=== PATIENT | female | born 1980 | race Caucasian/White ===

== ENCOUNTER 2019-11-23 11:45 | Emergency (ER) | payer BC, OTHER ==
--- OUTSIDE RECORDS SUMMARY | 2019-11-23 12:56 | XMS REPORT | Continuity of Care Document ---
:1980 External Reference #:[id number] Author Name Bryce Telles M.D. 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 40mg Tablets Dulera 1-2 puffs every 13gm J45.909 Bryce Telles, 11/10/2018 100-5mcg/Act day M.D. Aerosol Ambien 1 tab by mouth 30tabs G47.00 Bryce Telles, 08/06/2018 10mg Tablets every night as M.D. needed F41.9 Claritin 1 by mouth every 30caps J30.9 Bryce Telles, 07/03/2018 10mg Capsules day as needed M.D. Topiramate take 1 tablet 180tabs G43.119 Bryce Telles, 03/15/2017 100mg Tablets twice a day M.D. Ibuprofen 1 tab by mouth 90tabs M54.5 Bryce Telles, 07/30/2016 800mg Tablets every 8 hours with M.D. food as needed for pain R10.30 Omeprazole take 1 capsule daily 90caps K21.0 Bryce Telles, 06/26/[address] Juarez History Medications Tamiflu 1 cap by mouth 10caps J09.x9 Bryce Telles, 08/21/2019 - 75mg Capsules twice a day M.D. 08/25/2019 Cipro 1 tab by mouth 10tabs J09.x9 Bryce Telles, 08/21/2019 - 500mg Tablets twice a day M.D. 08/25/2019 Prednisone 3 tab by mouth 18tabs Bryce Telles, 07/08/2019 - 20mg daily 3 days, M.D. 07/17/2019 Tablets then 2 tab daily x 3 d , then 1 tab daily 3d Zantac 150 Maximum 2 tabs by mouth 60tabs K21.0 Bryce Telles, 2018 - Strength at as needed M.D. 05/15/2019 150mg reflux Tablets Medications Administered in Office Medication SIG Qnty Indications Ordering Provider Date Intradermal Mantoux Bryce Telles M.D. 04/28/2018 Injection Intradermal Mantoux Juan Miguel Montaño [facility] 01/31/2015 Injection Immunizations CPT Code Status Date Vaccine Reaction Lot # 13811 Given 08/12/2019 Flu Virus Vaccine, [id number] Quadrivalent, Slit Virus, Im Use 61640 Given 09/15/2018 Flu Vaccine [id number] 98317 Given 09/04/2017 MMR [id number] 00037 Given 08/30/2017 Flu Vaccine GIVEN AT [facility] 08/30/17--SEE NOTIFICATION IN CHART 71254 Given 07/30/2016 Flu Vaccine [id number] 55802 Given 08/11/2014 Flu Vaccine 79218 Given 10/08/2012 Flu Vaccine [id number] 65193 Given 07/13/1995 DTaP ND [id number] ML 0.50 99397 Given 06/05/1991 MMR 18519 Given 11/18/1981 DTaP ND [id number] ML 0.50 98019 Given 11/18/1981 MMR 36005 Given 11/18/1981 IPV 71698 Given 1980 IPV 77696 Given 1980 DTaP NDC [id number] ML 0.50 26405 Given 1980 IPV 82682 Given 1980 DTaP NDC [id number] ML 0.50 98266 Given 1980 IPV 51529 Given 1980 DTaP NDC [id number] ML 0.50 Vital Signs Date Vital Result Comment 09/25/2019 9:03am BP Systolic 118 mmHg BP Diastolic 66 mmHg Height 65 inches 5'5" Weight 205.00 lb BMI (Body Mass Index) 34.1 kg/m2 Heart Rate 74 /min Respiratory Rate 16 /min 08/21/2019 8:28am BP Systolic 118 mmHg BP Diastolic 66 mmHg Height 65 inches 5'5" Weight 199.00 lb BMI (Body Mass Index) 33.1 kg/m2 Heart Rate 99 /min Body Temperature 97.6 F Respiratory Rate 16 /min Results Test Acquired Date Facility Test Result H/L Range Note CBC With Diff 08/12/2019 [facility] WBC 5.9 10*3/uL (4.1-11.0) [address] [facility] (607)- - RBC 4.50 10*6/uL (4.00-5.40) HGB 13.9 g/dL (12.0-16.0) HCT 41.3 % (36.0-47.0) MCV 91.8 fL (80.0-95.0) MCH 31.0 pg (27.0-32.0) MCHC 33.8 g/dL (32.0-36.0) RDW 13.3 % (10.5-14.5) PLT 257 10*3/uL (150-450) MPV 8.3 fL (7.1-10.7) Neut % 61.0 % (35.0-75.0) Lymph % 33.1 % (16.0-52.0) Patrick % 4.8 % (0.0-8.0) Eos % 0.7 % (0.0-5.0) Baso % 0.4 % (0.0-4.0) Neut # 3.6 10*3/uL (1.8-7.7) Lymph # 2.0 10*3/uL (1.2-4.8) Patrick # 0.3 10*3/uL (0.0-0.8) Eos # 0.0 10*3/uL (0.0-0.5) Baso # 0.0 10*3/uL (0.0-0.2) CMP 08/12/2019 [facility] Sodium 142 mmol/L (136-145) [address] [facility] (607)- - Potassium 4.4 mmol/L (3.6-5.2) Chloride 113 mmol/L High (100-108) Co2 22 mmol/L (22-31) Anion Gap 7 mmol/L (7-16) Urea Nitrogen 18 mg/dL (7-24) Creatinine 0.95 mg/dL (0.60-1.00) BUN/Creat Ratio 18.9 RATIO (10.0-20.0) Glucose 95 mg/dL (70-99) Calcium 9.2 mg/dL (8.4-10.2) Total Protein 7.4 g/dL (6.4-8.2) Albumin 3.9 g/dL (3.5-4.6) Globulin 3.5 g/dL (2.7-4.3) Alb/Glob Ratio 1.1 RATIO Alkaline Phosphatase 45 U/L (45-117) Bilirubin,Total 0.2 mg/dL (0.0-1.0) Ast (Sgot) 8 U/L Low (11-39) Alt (SGPT) 17 U/L (12-78) GFR >60 ml/min/1.73m2 (>59) GFR ( Amer) >60 ml/min/1.73m2 (>59) GFR Interpretation <SEE NOTE> 1 Hemoglobin A1c 08/12/2019 [facility] Hemoglobin A1c @ 5.8 % (4.0-6.0) 2 [address] [facility] (607)- - Est Average Glucose 120 mg/dL Lipid 08/12/2019 [facility] Cholesterol @ 164 mg/dL (0-200) [address] [facility] (607)- - Triglyceride @ 115 mg/dL (30-200) HDL Cholesterol @ 39 mg/dL Low (>40) 3 Chol/HDL Ratio 4.2 RATIO 4 LDL Chol (Calc) 102 mg/dL (<130) 5 Laboratory 08/12/2019 [facility] TSH,Ultrasensitive @ 1.200 (0.360- 4.170) test finding [address] [facility] mIU/L (607)- - 25 Hydroxy Vit D @ 19 ng/mL Low (31-100) 6 1 NORMAL KIDNEY FUNCTION OR MILD DISEASE - GFR >OR= 60 CHRONIC KIDNEY DISEASE - GFR 15 - 59 RENAL FAILURE - GFR <15 Est. GFR calculation based on the MDRD study equation, which assumes a steady state for creatinine. Est. GFR should not be used for medication dosing. 2 Performed using [employer] immunoassay. Care must be taken when interpreting HbA1c results in patients with a hemoglobin variant or decreased erythrocyte lifespan. Values 5.7 - 6.4% suggest prediabetes. Values >=6.5% are diagnostic for diabetes. REFERENCE: DIABETES CARE 2018: 41(S13-S27). 3 PER NCEP ATP III GUIDELINES: RESULTS LOWER THAN 40 MG/DL ARE SUGGESTIVE OF INCREASED RISK FOR CORONARY ARTERY DISEASE. RESULTS > OR = TO 60 MG/DL ARE CONSIDERED A NEGATIVE RISK FACTOR. 4 INTERPRETATION OF CHOL-HDL RATIO CHD RISK FEMALE MALE VERY HIGH >8.3 >14.3 HIGH 5.6- 8.3 6.7- 14.3 AVERAGE 3.7- 5.6 4.0- 6.7 BELOW AVERAGE 2.5- 3.7 2.7- 4.0 PROTECTED <2.5 <2.7 5 PER NCEP ATP III GUIDELINES: OPTIMAL < 100 NEAR OPTIMAL 100 - 129 BORDERLINE HIGH 130 - 159 HIGH 160 - 189 VERY HIGH > 189 6 A REVIEW OF THE LITERATURE SUGGESTS THE FOLLOWING RANGES FOR THE CLASSIFICATION OF 25-OH VITAMIN D STATUS: VITAMIN D STATUS 25-OH VITAMIN D DEFICIENCY <20 NG/ML INSUFFICIENCY 20-30 NG/ML SUFFICIENCY 31 - 100 NG/ML TOXICITY > 100 NG/ML A PEDIATRIC REFERENCE RANGE HAS NOT BEEN ESTABLISHED USING THIS METHOD. Procedures Description No Information Available Medical Devices Description No Information Available Encounters Type Date Location Provider Dx Diagnosis Office Visit 09/25/2019 Bryce Pate, J45.909 Unspecified asthma, 9:00a M.D. 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 uncomplicated R73.01 Impaired fasting glucose K21.0 Gastro-esophageal reflux disease with esophagitis L20.9 Atopic dermatitis, unspecified J30.9 Allergic rhinitis, unspecified G47.00 Insomnia, unspecified F41.9 Anxiety disorder, unspecified G43.119 Migraine with aura, intractable, without status migrainosus R10.30 Lower abdominal pain, unspecified Z23 Encounter for immunization K30 Functional dyspepsia M54.5 Low back pain H52.13 Myopia, bilateral E66.3 Overweight Z83.3 Family history of diabetes mellitus R42 Dizziness and giddiness R53.83 Other fatigue M79.672 Pain in left foot Z79.899 Other group home (current) drug therapy K58.1 Irritable bowel syndrome with constipation G47.33 Obstructive sleep apnea (adult) (pediatric) R35.0 Frequency of micturition E55.9 Vitamin D deficiency, unspecified J09.x9 Flu due to ident novel influenza A virus w oth manifest R06.02 Shortness of breath R05 Cough R09.81 Nasal congestion R50.9 Fever, unspecified Office Visit 08/12/2019 8:30a Bryec Pate, J45.909 Unspecified asthma, M.D. uncomplicated R73.01 Impaired fasting glucose K21.0 Gastro-esophageal reflux disease with esophagitis L20.9 Atopic dermatitis, unspecified J30.9 Allergic rhinitis, unspecified E16.2 Hypoglycemia, unspecified G47.00 Insomnia, unspecified F41.9 Anxiety disorder, unspecified G43.119 Migraine with aura, intractable, without status migrainosus R10.30 Lower abdominal pain, unspecified Z23 Encounter for immunization K30 Functional dyspepsia M54.5 Low back pain H52.13 Myopia, bilateral E66.3 Overweight Z83.3 Family history of diabetes mellitus R42 Dizziness and giddiness R53.83 Other fatigue M79.672 Pain in left foot Z79.899 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 uncomplicated R73.01 Impaired fasting glucose K21.0 Gastro-esophageal reflux disease with esophagitis L20.9 Atopic dermatitis, unspecified J30.9 Allergic rhinitis, unspecified E16.2 Hypoglycemia, unspecified G47.00 Insomnia, unspecified F41.9 Anxiety disorder, unspecified G43.119 Migraine with aura, intractable, without status migrainosus R10.30 Lower abdominal pain, unspecified K30 Functional dyspepsia M54.5 Low back pain H52.13 Myopia, bilateral E66.3 Overweight Z83.3 Family history of diabetes mellitus R42 Dizziness and giddiness R53.83 Other fatigue M79.672 Pain in left foot Z79.899 Other group home (current) drug therapy K58.1 Irritable bowel syndrome with constipation G47.33 Obstructive sleep apnea (adult) (pediatric) R35.0 Frequency of micturition S33.5xxA Sprain of ligaments of lumbar spine, initial encounter Office Visit 05/15/2019 8:45a Bryce Pate, J45.909 Unspecified kwesi, MJuvencio uncomplicated R73.01 Impaired fasting glucose K21.0 Gastro-esophageal reflux disease with esophagitis L20.9 Atopic dermatitis, unspecified J30.9 Allergic rhinitis, unspecified E16.2 Hypoglycemia, unspecified G47.00 Insomnia, unspecified F41.9 Anxiety disorder, unspecified G43.119 Migraine with aura, intractable, without status migrainosus R10.30 Lower abdominal pain, unspecified K30 Functional dyspepsia M54.5 Low back pain H52.13 Myopia, bilateral E66.3 Overweight Z83.3 Family history of diabetes mellitus R42 Dizziness and giddiness R53.83 Other fatigue M79.672 Pain in left foot Z79.899 Other group home (current) drug therapy K58.1 Irritable bowel syndrome with constipation G47.33 Obstructive sleep apnea (adult) (pediatric) Office Visit 04/07/2019 11:15a Ophelia Jose J45.909 Unspecified asthma, N.P. 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 09/25/2019 R73.01 Impaired fasting glucose Bryce Telles M.D. 09/25/2019 K21.0 Gastro-esophageal reflux disease with Bryce Telles M.D. esophagitis 09/25/2019 L20.9 Atopic dermatitis, unspecified Bryce Telles M.D. 09/25/2019 J30.9 Allergic rhinitis, unspecified Bryce Telles M.D. 09/25/2019 G47.00 Insomnia, unspecified Bryce Telles M.D. 09/25/2019 F41.9 Anxiety disorder, unspecified Bryce Telles M.D. 09/25/2019 G43.119 Migraine with aura, intractable, without Bryce Telles M.D. status migrainosus 09/25/2019 R10.30 Lower abdominal pain, unspecified Bryce Telles M.D. 09/25/2019 K30 Functional dyspepsia Bryce Telles M.D. 09/25/2019 M54.5 Low back pain Bryce Telles M.D. 09/25/2019 H52.13 Myopia, bilateral Bryce Telles M.D. 09/25/2019 E66.3 Overweight Bryce Telles M.D. 09/25/2019 Z83.3 Family history of diabetes mellitus Bryce Telles M.D. 09/25/2019 R42 Dizziness and giddiness Bryce Telles M.D. 09/25/2019 R53.83 Other fatigue Bryce Telles M.D. 09/25/2019 M79.672 Pain in left foot Bryce Telles M.D. 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 09/25/2019 K58.1 Irritable bowel syndrome with constipation Bryce Telles M.D. 09/25/2019 G47.33 Obstructive sleep apnea (adult) (pediatric) Bryce Telles M.D. 09/25/2019 R35.0 Frequency of micturition Bryce Telles M.D. 09/25/2019 E55.9 Vitamin D deficiency, unspecified Bryce Telles M.D. 09/25/2019 J09.x9 Influenza due to identified novel influenza Bryce Telles M.D. A virus with other manifestations 09/25/2019 R06.02 Shortness of breath Bryce Telles M.D. 09/25/2019 R05 Cough Bryce Telles M.D. 09/25/2019 R09.81 Nasal congestion Bryce Telles M.D. 09/25/2019 R50.9 Fever, unspecified Bryce Telles M.D. 08/21/2019 J45.909 Unspecified asthma, uncomplicated Bryce Telles M.D. 08/21/2019 R73.01 Impaired fasting glucose Bryce Telles M.D. 08/21/2019 K21.0 Gastro-esophageal reflux disease with Bryce Telles M.D. esophagitis 08/21/2019 L20.9 Atopic dermatitis, unspecified Bryce Telles M.D. 08/21/2019 J30.9 Allergic rhinitis, unspecified Bryce Telles M.D. 08/21/2019 G47.00 Insomnia, unspecified Bryce Telles M.D. 08/21/2019 F41.9 Anxiety disorder, unspecified Bryce Telles M.D. 08/21/2019 G43.119 Migraine with aura, intractable, without Bryce Telles M.D. status migrainosus 08/21/2019 R10.30 Lower abdominal pain, unspecified Bryce Telles M.D. 08/21/2019 Z23 Encounter for immunization Bryce Telles M.D. 08/21/2019 K30 Functional dyspepsia Bryce Telles M.D. 08/21/2019 M54.5 Low back pain Bryce Telles M.D. 08/21/2019 H52.13 Myopia, bilateral Bryce Telles M.D. 08/21/2019 E66.3 Overweight Bryce Telles M.D. 08/21/2019 Z83.3 Family history of diabetes mellitus Bryce Telles M.D. 08/21/2019 R42 Dizziness and giddiness Bryce Telles M.D. 08/21/2019 R53.83 Other fatigue Bryce Telles M.D. 08/21/2019 M79.672 Pain in left foot Bryce Telles M.D. 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 08/21/2019 K58.1 Irritable bowel syndrome with constipation Bryce Telles M.D. 08/21/2019 G47.33 Obstructive sleep apnea (adult) (pediatric) Bryce Telles M.D. 08/21/2019 R35.0 Frequency of micturition Bryce Telles M.D. 08/21/2019 E55.9 Vitamin D deficiency, unspecified Bryce Telles M.D. 08/21/2019 J09.x9 Influenza due to identified novel influenza Bryce Telles M.D. A virus with other manifestations 08/21/2019 R06.02 Shortness of breath Bryce Telles M.D. 08/21/2019 R05 Cough Bryce Telles M.D. 08/21/2019 R09.81 Nasal congestion Bryce Telles M.D. 08/21/2019 R50.9 Fever, unspecified Bryce Telles M.D. 08/12/2019 J45.909 Unspecified asthma, uncomplicated Bryce Telles M.D. 08/12/2019 R73.01 Impaired fasting glucose Bryce Telles M.D. 08/12/2019 K21.0 Gastro-esophageal reflux disease with Bryce Telles M.D. esophagitis 08/12/2019 L20.9 Atopic dermatitis, unspecified Bryce Telles M.D. 08/12/2019 J30.9 Allergic rhinitis, unspecified Bryce Telles M.D. 08/12/2019 E16.2 Hypoglycemia, unspecified Bryce Telles M.D. 08/12/2019 G47.00 Insomnia, unspecified Bryce Telles M.D. 08/12/2019 F41.9 Anxiety disorder, unspecified Bryce Telles M.D. 08/12/2019 G43.119 Migraine with aura, intractable, without ElfegoBryce alan M.D. status migrainosus 08/12/2019 R10.30 Lower abdominal pain, unspecified Bryce Telles M.D. 08/12/2019 Z23 Encounter for immunization Bryce Telles M.D. 08/12/2019 K30 Functional dyspepsia Bryce Telles M.D. 08/12/2019 M54.5 Low back pain Bryce Telles M.D. 08/12/2019 H52.13 Myopia, bilateral Bryce Telles M.D. 08/12/2019 E66.3 Overweight Bryce Telles M.D. 08/12/2019 Z83.3 Family history of diabetes mellitus Bryce Telles M.D. 08/12/2019 R42 Dizziness and giddiness Bryce Telles M.D. 08/12/2019 R53.83 Other fatigue Bryce Telles M.D. 08/12/2019 M79.672 Pain in left foot Bryce Telles M.D. 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 08/12/2019 K58.1 Irritable bowel syndrome with constipation Bryce Telles M.D. 08/12/2019 G47.33 Obstructive sleep apnea (adult) (pediatric) Bryce Telles M.D. 08/12/2019 R35.0 Frequency of micturition Bryce Telles M.D. 08/12/2019 Z00.01 Encounter for general adult medical Bryce Telles M.D. examination with abnormal findings 08/12/2019 E55.9 Vitamin D deficiency, unspecified Bryce Telles M.D. 07/08/2019 J45.909 Unspecified asthma, uncomplicated Bryce Telles M.D. 07/08/2019 R73.01 Impaired fasting glucose Bryce Telles M.D. 07/08/2019 K21.0 Gastro-esophageal reflux disease with Bryce Telles M.D. esophagitis 07/08/2019 L20.9 Atopic dermatitis, unspecified Bryce Telles M.D. 07/08/2019 J30.9 Allergic rhinitis, unspecified Bryce Telles M.D. 07/08/2019 E16.2 Hypoglycemia, unspecified Bryce Telles M.D. 07/08/2019 G47.00 Insomnia, unspecified Bryce Telles M.D. 07/08/2019 F41.9 Anxiety disorder, unspecified Bryce Telles M.D. 07/08/2019 G43.119 Migraine with aura, intractable, without Bryce Telles M.D. status migrainosus 07/08/2019 R10.30 Lower abdominal pain, unspecified Bryce Telles M.D. 07/08/2019 K30 Functional dyspepsia Bryce Telles M.D. 07/08/2019 M54.5 Low back pain Bryce Telles M.D. 07/08/2019 H52.13 Myopia, bilateral Bryce Telles M.D. 07/08/2019 E66.3 Overweight Bryce Telles M.D. 07/08/2019 Z83.3 Family history of diabetes mellitus Bryce Telles M.D. 07/08/2019 R42 Dizziness and giddiness Bryce Telles M.D. 07/08/2019 R53.83 Other fatigue Bryce Telles M.D. 07/08/2019 M79.672 Pain in left foot Bryce Telles M.D. 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 07/08/2019 K58.1 Irritable bowel syndrome with constipation Bryce Telles M.D. 07/08/2019 G47.33 Obstructive sleep apnea (adult) (pediatric) Bryce Telles M.D. 07/08/2019 R35.0 Frequency of micturition Bryce Telles M.D. 07/08/2019 S33.5xxA Sprain of ligaments of lumbar spine, Bryce Telles M.D. initial encounter 05/15/2019 J45.909 Unspecified asthma, uncomplicated Bryce Telles M.D. 05/15/2019 R73.01 Impaired fasting glucose Bryce Telles M.D. 05/15/2019 K21.0 Gastro-esophageal reflux disease with Bryce Telles M.D. esophagitis 05/15/2019 L20.9 Atopic dermatitis, unspecified Bryce Telles M.D. 05/15/2019 J30.9 Allergic rhinitis, unspecified Bryce Telles M.D. 05/15/2019 E16.2 Hypoglycemia, unspecified Bryce Telles M.D. 05/15/2019 G47.00 Insomnia, unspecified Bryce Telles M.D. 05/15/2019 F41.9 Anxiety disorder, unspecified Bryce Telles M.D. 05/15/2019 G43.119 Migraine with aura, intractable, without Bryce Telles M.D. status migrainosus 05/15/2019 R10.30 Lower abdominal pain, unspecified Bryce Telles M.D. 05/15/2019 K30 Functional dyspepsia Bryce Telles M.D. 05/15/2019 M54.5 Low back pain Bryce Telles M.D. 05/15/2019 H52.13 Myopia, bilateral Bryce Telles M.D. 05/15/2019 E66.3 Overweight Bryce Telles M.D. 05/15/2019 Z83.3 Family history of diabetes mellitus Bryce Telles M.D. 05/15/2019 R42 Dizziness and giddiness Bryce Telles M.D. 05/15/2019 R53.83 Other fatigue Bryce Telles M.D. 05/15/2019 M79.672 Pain in left foot Bryce Telles M.D. 05/15/2019 Z79.899 Other group home (current) drug therapy Bryce Telles M.D. 05/15/2019 K58.1 Irritable bowel syndrome with constipation Bryce Telles M.D. 05/15/2019 G47.33 Obstructive sleep apnea (adult) (pediatric) Bryce Telles M.D. 04/07/2019 J45.909 Unspecified asthma, uncomplicated Estuardo Jose, N.P. 04/07/2019 R73.01 Impaired fasting glucose Estuardo Jose N.P. 04/07/2019 K21.0 Gastro-esophageal reflux disease with Estuardo Jose N.PPortillo esophagitis 04/07/2019 L20.9 Atopic dermatitis, unspecified Estuardo Jose N.PPortillo 04/07/2019 J30.9 Allergic rhinitis, unspecified Estuardo Jose N.PPortlilo 04/07/2019 E16.2 Hypoglycemia, unspecified Estuardo Jose N.PPortillo 04/07/2019 G47.00 Insomnia, unspecified Estuardo Jose N.PPortillo 04/07/2019 F41.9 Anxiety disorder, unspecified Estuardo Jose N.PPortillo 04/07/2019 G43.119 Migraine with aura, intractable, without Estuardo Jose, N.PPortillo status migrainosus 04/07/2019 R10.30 Lower abdominal pain, unspecified Estuardo Jose N.PPortillo 04/07/2019 K30 Functional dyspepsia Estuardo Jose N.PPortillo 04/07/2019 M54.5 Low back pain Estuardo Jose N.PPortillo 04/07/2019 H52.13 Myopia, bilateral Estuardo Jose N.PPortillo 04/07/2019 E66.3 Overweight Estuardo Jose N.PPortillo 04/07/2019 Z83.3 Family history of diabetes mellitus Estuardo Jose N.PPortillo 04/07/2019 R42 Dizziness and giddiness Estuardo Jose N.PPortillo 04/07/2019 R53.83 Other fatigue Estuardo Jose N.PPortillo 04/07/2019 M79.672 Pain in left foot Estuardo Jose N.PPortillo 04/07/2019 Z79.899 Other ad terminal 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 operator (current) 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 therapy Estuardo Jose N.PPortillo 04/07/2019 K58.1 Irritable bowel syndrome with constipation Estuardo Jose NPatience Plan of Treatment 09/25/2019 - Bryce Telles M.D.J45.909 Unspecified asthma, uncomplicatedComments:MDI / NEBULIZER [place] PRN AVOID EXPOSURE TO SMOKING OR MBZGUT41.01 Impaired fasting glucoseComments:F/U [facility] AN HS PRNLOW GLUCOSE DIETK21.0 Gastro-esophageal reflux disease with esophagitisComments: AVOID CAFFEINE, ETOH AND SPICY FOODSTUMS OR MYLANTA PRN CALL WITH PROBLEMS OR RKBIWDQIP81.9 Atopic dermatitis, unspecifiedComments:SKIN CARE INSTRUCTIONS LOTION OR BABY OIL 2-3 APPLICATION PER DAYUSE MOISTURIZING SOAPAVOID PROLONGED WATER EXPOSUREAVOID USING HOT WATER IN PVJRWWX09.9 Allergic rhinitis, unspecifiedComments:INCREASE PO FLUID USE ANTIHISTAMINE PRN SECOND HAND SMOKING [id number] Insomnia, unspecifiedComments:COUNCELLING AND REASSURANCE RELAXATION TECHNIQUES DISCUSSED COUNSELED RE: STRESSORS IN LIFE TYLENOLPM OR MOTRIN PM PRN DUR [id number] Anxiety disorder, unspecifiedComments: COUNCELLING AND REASSURANCE RELAXATION TECHNIQUES DISCUSSEDCOUNSELED RE: STRESSORS IN LIFE AVOID ALLENERGY/HIGH CAFFEINE DRINKS DUR DRUYNNYN44.119 Migraine with aura, intractable, without status migrainosusComments:COUNCELLING AND REASSURANCE F/U WITH NEUROLOGY PRNR10.30 Lower abdominal pain, unspecifiedComments:TYLENOL OR MOTRIN PRNINCREASE PO FLUIDLAXATIVE PRN F/U DIRECTEDF/U [id number] Functional dyspepsiaComments:AVOID CAFFEINE, ETOH AND SPICY FOODSTUMS OR MYLANTA PRN CALL WITH PROBLEMS OR JDBIPYHMK93.5 Low back painComments:EXERCISE/HEAT /MESSAGEAVOID HEAVY LIFTING WT LOSSTYLENOL OR MOTRIN PRNH52.13 Myopia, bilateralComments:USE GLASSES/ CONTACTSF/U WITH [id number] OverweightComments:EXERCISE REGURALYDIET RICPENTNWYHT66.3 Family history of diabetes mellitusComments:OBSERVEF/U LAB [id number] Dizziness and giddinessComments:NCTKOCW83.83 Other fatigueComments:INCRFEASE PO FLUIDCOUNCELLING AND REASSURANCE RESTM79.672 Pain in left footComments:TYLENOL OR MOTRIN PRN EXERCISE/HEAT/MESSAGE F/U WITH TQRFIZGGP34.899 Other group home ( current) drug therapyComments:REVIEWED MEDICATIONS AND DIRECTIONS WITH PATIENT DUR FAEBUGJN71.1 Irritable bowel syndrome with constipationComments:TYLENOL OR MOTRIN PRNINCREASE PO FLUIDLAXATIVE PRN F/U DIRECTEDF/U PWEAEOJUK05.33 Obstructive sleep apnea (adult) (pediatric)Comments:PENDING SLEEP APNEA TESTR35.0 Frequency of micturitionComments:OBSERVE AND LEBOJFFOI73.9 Vitamin D deficiency, unspecifiedComments:INCREASE EXPOSURE TO SUNREVIEW OF DIETJ09.x9 Influenza due to identified novel influenza A virus with other manifestationsComments:VNCYKTDPG74.02 Shortness of breathComments:[id number] CoughComments:DHAHXHYOE41.81 Nasal congestionComments:SACVIGSHF35.9 Fever, unspecifiedComments:RESOLVED Functional Status Description No Information Available Mental Status Description No Information Available Referrals Refer to Reason for Referral Status Appt Date Logan Sandoval MD Closed 05/05/[address] [place] [id number] ENT [phone]
[2019-11-23 13:22] VITALS: BP 107/63
--- NOTE | 2019-11-23 13:23 | UC ---
Respiratory Complaint HPI - HPI Summary HPI Summary: Patient is a 39yo female presenting with for complaint of cough, sob, myalgias, and chills x3-4 days. Patient states she has been sick on and off multiple times since sep 2019 and seen by her pcp for treatment. States she was treated with two different antibiotics for both sinusitis and "to prevent pneumonia." States she was also given prednisone at one point. Patient states that the past few days she has been using both her dulera inhaler and rescue albuterol inhaler only with temporary relief. Denies current URI symptoms. Denies rash. Notes chills and subjective fever this morning. Notes back pain that is worsened by coughing. Cough nonproductive. Denies taking anything for cough relief. States she has concern for pneumonia. Patient notes she works at [email or web address] in [place]. - History of Current Complaint Stated Complaint: COUGH/CHEST CONGESTION Hx Obtained From: Patient Pain Intensity: 5 Pain Scale Used: 0-10 Numeric - Allergies/Home Medications Allergies/Adverse Reactions: Allergies Allergy/AdvReac Type Severity Reaction Status Date / Time No Known Allergies Allergy Verified 11/23/19 13:03 Home Medications: Home Medications Albuterol HFA INHALER* [Ventolin HFA Inhaler*] 2 puff INH BID PRN 11/23/19 [ History Confirmed 11/23/19] Citalopram TAB* [CeleXA TAB*] 40 mg PO BEDTIME 11/23/19 [History Confirmed 11/23] Expectorant 12hr Liquid 10 mg PO DAILY PRN 11/23/19 [History] Mometasone/Formoter 100/5 MDI* [Dulera 100/5 MDI*] 2 puff INH BID 11/23/19 [ History Confirmed 11/23/19] Omeprazole 40 mg PO QAM 11/23/19 [History Confirmed 11/23/19] Topiramate TAB(*) [Topamax 100 mg tab] 100 mg PO BID 11/23/19 [History Confirmed 11/23/19] Zolpidem TAB* [Ambien TAB*] 10 mg PO BEDTIME PRN 11/23/19 [History Confirmed ] PMH/Surg Hx/FS Hx/Imm Hx - Surgical History Surgical History: Yes Surgery Procedure, Year, and Place: lap cholecystectomy, hysterectomy - Social History Alcohol Use: None Substance Use Type: None Smoking Status (MU): Former Smoker Review of Systems All Other Systems Reviewed And Are Negative: Yes Constitutional: Positive: Fever - subjective. Negative: Chills Skin: Positive: Negative ENT: Positive: Negative Respiratory: Positive: Shortness Of Breath, Cough - nonproductive Cardiovascular: Positive: Negative Gastrointestinal: Positive: Negative Musculoskeletal: Positive: Myalgia Neurological: Positive: Negative Physical Exam Triage Information Reviewed: Yes Appearance: Well-Appearing, No Pain Distress, Well-Nourished Vital Signs: Initial Vital Signs Temp 100 F 11/23/19 13:12 Pulse 99 11/23/19 13:12 Resp 20 11/23/19 13:12 BP 107/63 11/23/19 13:12 Pulse Ox 100 11/23/19 13:12 Lab Results 11/23/19 Range/Units 13:52 Influenza A (Rapid) Negative (Negative) Influenza B (Rapid) Negative (Negative) Vital Signs Reviewed: Yes Eyes: Positive: Conjunctiva Clear ENT: Positive: Hearing grossly normal, Pharynx normal, TMs normal, Uvula midline Neck exam: Normal Neck: Positive: Supple, Nontender, No Lymphadenopathy Respiratory: Positive: No respiratory distress, No accessory muscle use, Wheezing - diffuse b/l upper lobe wheezing on expiration, Other: - no tachypnea. no sob while conversing. Negative: Crackles, Rhonchi, Stridor Cardiovascular Exam: Normal Cardiovascular: Positive: RRR, No Murmur Neurological: Positive: Alert Psychological: Positive: Age Appropriate Behavior Skin Exam: Normal - no erythema or ecchymosis Skin: Negative: Rashes Diagnostics - Radiology chest Radiology Interpretation Completed By: Radiologist Summary of Radiographic Findings: IMPRESSION: No active cardiopulmonary disease is noted. Respiratory Course/Dx - Course Course Of Treatment: Discussed viral illness vs asthma vs bronchitis. Negative rapid flu test. CXR negative. Discussed this with patient who states "I just do not want any more antibiotics or steroids." I suggested patient follow up again with pcp or pulmonology. Patient requested pulmonology referral near [place]. I provided her with referral. Educated on s/s of worsening illness and instructed to go to ED with any red flags. Patient voiced understanding and agreed with treatment plan. - Differential Dx/Diagnosis Differential Diagnosis/HQI/PQRI: Asthma, Bronchitis, Influenza Provider Diagnosis: Acute bronchospasm, Viral respiratory illness Discharge ED - Sign-Out/Discharge Documenting (check all that apply): Patient Departure All imaging exams completed and their final reports reviewed: Yes - Discharge Plan Condition: Stable Disposition: HOME Patient Education Materials: Acute Bronchitis (ED), Bronchospasm (ED) Referrals: Bryce Telles MD [Primary Care Provider] - If Needed Additional Instructions: As discussed, your rapid flu test was negative today. It is likely your symptoms are caused by a virus and will resolve without treatment. You may continue with over the counter cough and cold medications. Continue to use your inhalers as needed for shortness of breath/wheezing. Get plenty of rest and fluids. Follow up with your primary care provider or the pulmonology referral listed below for further evaluation of recurrent symptoms. Pulmonary Clinic [facility] Map & directions [facility] [address] [place] [address] - Billing Disposition and Condition Condition: STABLE Disposition: Home
[2019-11-23 14:05] LABS: Influenza A Molecular NEGATIVE (Negative); Influenza B Molecular NEGATIVE (Negative)
== END 2019-11-23 14:45 | disposition home or self-care (01) ==
LOC: UCCORT 11:45
DX: J98.01 Acute bronchospasm (principal); B34.9 Viral infection, unspecified; R05 Cough; R06.02 Shortness of breath; M79.10 Myalgia, unspecified site; R68.83 Chills (without fever); Z87.891 Personal history of nicotine dependence
CPT/HCPCS: 71046; 99201; G0463